=== PATIENT | female | born 1995 | race Caucasian/White ===

== ENCOUNTER 2022-11-26 10:43 | Emergency (ER) | payer BC ==
[~2022-11-26] VITALS: Ht 154.9 cm; Wt 50.0 kg
[~2022-11-26 10:43] MED LIST: AMOX1TAB16 PO; IBUP-1492 PO; TRAM-559 PO
[2022-11-26 10:46] VITALS: TEMP 97.8
[2022-11-26 12:41] LABS: COVID AG,FIA SOURCE NASAL SWAB
[2022-11-26 12:45] LABS: RAPID GROUP A STREP NEGATIVE (NEGATIVE)
[2022-11-26 12:59] LABS: INFLUENZA TYPE A NEGATIVE FOR TYPE A (NEGATIVE); INFLUENZA TYPE B NEGATIVE FOR TYPE B (NEGATIVE)
[2022-11-26] MEDS ORDERED: AMPICILLIN SODIUM/SULBACTAM NA 1.5 GM in SODIUM CHLORIDE 0.9% 50 ML IV ONE (14:15)
[2022-11-26] MEDS ORDERED: SODIUM CHLORIDE 0.9% 1,000 ML IV ONE (14:15)
[2022-11-26] MEDS ORDERED: MethylPREDNISolone SOD SUCC 125 MG/2 ML VIAL IVP ONE (14:15)
[2022-11-26] MEDS ORDERED: SODIUM CHLORIDE 0.9% 100 ML ONE (14:19)
[2022-11-26] MEDS ORDERED: IOHEXOL 350 MG/ML 100 ML VIAL ONE (14:19)
[2022-11-26] MEDS ORDERED: CLINDAMYCIN 900 MG/D5% WATER 50 ML IV ONE (15:15)
[2022-11-26] MEDS ORDERED: DEXAMETHASONE SOD PHOS 4 MG/ML 5 ML VIAL IVP ONE (15:15)
[2022-11-26 15:17] LABS: BASOPHILS % (AUTO) 0.2 % (0.0-2.0); EOSINOPHILS % (AUTO) 1.4 % (1.0-6.0); HEMATOCRIT 40.7 % (36-46); HEMOGLOBIN 13.7 g/dL (12.0-16.0); LYMPHOCYTES # (AUTO) 1.2 K/uL (1.0-4.8); LYMPHOCYTES % (AUTO) 10.5 % (22.0-44.0); MEAN CORPUSCULAR HEMOGLOBIN 31.1 pg (26.0-34.0); MEAN CORPUSCULAR HGB CONC 33.5 G/dL (31.0-37.0); MEAN CORPUSCULAR VOLUME 93 fL (80-100); MONOCYTES # (AUTO) 0.8 K/uL (0.1-1.0); MONOCYTES % (AUTO) 6.7 % (2.0-9.0); NEUTROPHILS # (AUTO) 9.6 K/uL (1.8-7.7); NEUTROPHILS % (AUTO) 81.2 % (40.0-70.0); PLATELET COUNT (AUTO) 402 K/uL (150-450); RED BLOOD CELL COUNT(AUTO) 4.39 MIL/uL (4.00-5.20); RED CELL DISTRIBUTION WIDTH 13.2 % (11.5-14.5)
[2022-11-26 15:27] LABS: ANION GAP 13 mmol/L (8-16); CALCIUM, TOTAL 9.4 mg/dL (8.8-10.5); CARBON DIOXIDE 29 mmol/L (22-29); CHLORIDE 99 mmol/L (98-107); CREATININE 0.59 mg/dL (0.60-1.30); GLOMERULAR FILTR. RATE CALC > 60 mL/min (>60); GLUCOSE,RANDOM 82 mg/dL (70-110); SODIUM SERUM 141 mmol/L (136-145)
[2022-11-26] MEDS ORDERED: CLIN300C58 PO (17:35)
[2022-11-26] MEDS ORDERED: PRED-554 PO (17:35)
[2022-11-26 17:55] VITALS: BP 117/73; PULSE 74; RESP 18
== END 2022-11-26 19:09 | disposition home or self-care (01) ==
LOC: EMS 10:43
DX: J36 Peritonsillar abscess (principal); F12.90 Cannabis use, unspecified, uncomplicated; Z20.822 Contact with and (suspected) exposure to COVID-19
CPT/HCPCS: 99285; 96365; 70491; 96361; 96375; 87426; 80048; 85025; 87430; 87804; 36415; 96368; J0295; J3490; J2930; Q9967; J7030; J7050 ×2

== ENCOUNTER 2022-11-28 15:16 | Emergency (ER) | payer BC ==
[~2022-11-28] VITALS: Ht 152.4 cm; Wt 50.0 kg
[~2022-11-28 15:16] MED LIST changes: +CLIN300C58 PO; +PRED-554 PO
[2022-11-28 15:45] VITALS: TEMP 98.2
[2022-11-28] MEDS ORDERED: LIDOCAINE 1% 10 ML VIAL SQ ONE (17:30)
[2022-11-28 17:45] VITALS: BP 126/70; PULSE 83; RESP 16
== END 2022-11-28 18:11 | disposition home or self-care (01) ==
LOC: EMS 15:16
DX: J36 Peritonsillar abscess (principal); F12.90 Cannabis use, unspecified, uncomplicated
CPT/HCPCS: 99284; 10160; J3490

== ENCOUNTER 2022-12-16 10:40 | Emergency (ER) | payer BC ==
[~2022-12-16] VITALS: Ht 152.4 cm; Wt 50.0 kg
[2022-12-16 12:13] VITALS: PULSE 67
[2022-12-16] MEDS ORDERED: DEXAMETHASONE SOD PHOS 4 MG/ML 5 ML VIAL IM ONE (12:30)
[2022-12-16] MEDS ORDERED: IBUPROFEN 400 MG TABLET PO ONE (12:30)
[2022-12-16] MEDS ORDERED: AMOX TR/POT CLAV 875 MG/125 MG TABLET PO ONE (12:30)
[2022-12-16] MEDS ORDERED: AMOX1TAB16 PO (12:56)
[2022-12-16] MEDS ORDERED: IBUP-1506 PO (12:56)
[2022-12-16 13:31] LABS: COVID AG,FIA SOURCE NASOPHARYNGEAL
[2022-12-16 13:39] LABS: RAPID GROUP A STREP NEGATIVE (NEGATIVE)
[2022-12-16 13:44] LABS: INFLUENZA TYPE A NEGATIVE FOR TYPE A (NEGATIVE); INFLUENZA TYPE B NEGATIVE FOR TYPE B (NEGATIVE)
[2022-12-16 15:50] VITALS: BP 95/71; RESP 16; TEMP 99
== END 2022-12-16 15:54 | disposition home or self-care (01) ==
LOC: EMS 10:40
DX: J02.9 Acute pharyngitis, unspecified (principal); F12.90 Cannabis use, unspecified, uncomplicated; Z20.822 Contact with and (suspected) exposure to COVID-19
CPT/HCPCS: 99283; 87426; 87430; 87804; 96372; J1100

== ENCOUNTER 2022-12-18 15:24 | Emergency (ER) | payer BC ==
[~2022-12-18] VITALS: Ht 152.4 cm; Wt 50.0 kg
[~2022-12-18 15:24] MED LIST changes: +IBUP-1506 PO
[2022-12-18 15:27] VITALS: BP 143/59; PULSE 80; RESP 18; TEMP 98.9
[2022-12-18] MEDS ORDERED: KETOROLAC TROMETHAMINE 30 MG/ML VIAL IM ONE (15:45)
[2022-12-18] MEDS ORDERED: DEXAMETHASONE SOD PHOS 4 MG/ML VIAL IM ONE (15:45)
== END 2022-12-18 16:15 | disposition home or self-care (01) ==
LOC: EMS 15:25
DX: J02.9 Acute pharyngitis, unspecified (principal); F12.90 Cannabis use, unspecified, uncomplicated
CPT/HCPCS: 99284; 96372; J1100; J1885